=== PATIENT | female | born 1995 | race Caucasian/White ===

== ENCOUNTER 2019-04-08 09:21 | Emergency (ER) | payer OTHER, SELFPAY ==
--- NOTE | 2019-04-08 09:25 | ED.GENADULT ---
HPI - General Adult General Chief complaint: Upper Respiratory Infection Stated complaint: Cough,Fever Time Seen by Provider: 04/08/19 09:42 Source: patient and RN notes reviewed Mode of arrival: ambulatory Limitations: no limitations History of Present Illness HPI narrative: This patient onset of a cough which is been nonproductive on the evening of 04/06/2019. She also developed a fever with a temperature maximum to 100.4. She is a small amount of clear nasal drainage. She has had a slight sore throat not severe. She has not had any nausea, no vomiting, no diarrhea. She has had no hematuria, no dysuria, no pyuria. She has not had any ear pain or drainage from the ears. 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 She has had an influenza vaccine This season. Related Data Home Medications Medication Instructions Recorded Confirmed cetirizine [Zyrtec] 10 mg DAILY 04/08/19 04/08/19 fluticasone propionate [Flonase 1 spray INTRANASAL DAILY 04/08/19 04/08/19 Allergy Relief] Allergies Allergy/AdvReac Type Severity Reaction Status Date / Time No Known Allergies Allergy Verified 04/08/19 09:41 Review of Systems Review of Systems: Narrative: CONSTITUTIONAL: Denies fever, chills, or sweats. Noncontributory except as pertains to the past medical history and history of present illness. EYES: Denies visual changes, redness, or discharge. ENT: Denies rhinorrhea, congestion, sore throat, or otalgia. CARDIOVASCULAR: Denies chest pain, palpitations, or edema. RESPIRATORY: Denies cough or dyspnea. GASTROINTESTINAL: Denies abdominal pain, nausea, vomiting, or diarrhea. GENITOURINARY: Denies dysuria or hematuria. SKIN: Denies rash or itching. MUSCULOSKELETAL: Denies back pain, joint pain, or myalgia. NEUROLOGIC: Denies headache, numbness, or weakness. PSYCHIATRIC: Denies anxiety or depression. [facility] Social History Social History Gender identity (if verbalized by the patient): Female Comments At time of signature, I have reviewed and agree with nursing past medical, surgical, social, and family history.Please see nursing chart for further information. There is no relevant family history pertinent to the presenting complaint. Exam Narrative: Exam Narrative: GENERAL: Well-appearing, well-nourished, and in no acute distress. HEAD: Normocephalic, atraumatic. EYES: PERRLA and EOMI. EARS: TM's clear Bilaterally and the canals are clear. NOSE: Nares are edematous in terms of the nasal mucosa, but no purulent rhinorrhea or postnasal drip is seen. THROAT:Mucous membranes moist.Oropharynx normal without erythema or exudates. NECK: Supple. No adenopathy of the neck, supraclavicular, axillary, or inguinal areas. RESPIRATORY: No respiratory distress. Airway patent. Respirations non-labored. The lungs have rhonchi in upper and in the midlung saravia, but not the bases. There are no wheezes, no rales, no retractions, no use accessory muscle respirations. Patient's not cyanotic and not dyspneic. HEART: Regular rate and rhythm. No murmur heard. Normal peripheral pulses. ABDOMEN: Soft, nontender, nondistended, normal active bowel sounds.No masses. No rebound or guarding, No organomegaly. No CVA pain. No pain McBurney's point. Patient is a negative Tubbs sign and negative Rovsing sign. There are no pulsatile masses no audible bruits. EXTREMITIES: No clubbing/cyanosis/ edema. Normal strength & range of motion. SKIN: Warm, dry.Normal color. No rashes or skin lesions. Patient is well-nourished well-hydrated has moist mucous membranes no tenting of the skin. NEURO: Alert and oriented. CN 2-12 grossly intact. No focal deficits. PSYCH: Normal mood and affect. Medical Decision Making [facility] Narrative Medical decision making narrative: Bronchitis, rule out influenza. Discharge Plan Discharge Clinical Impression: Bronchitis Patient Disposition: Home, Self-Ca
[2019-04-08 09:34] VITALS: BP 126/74; PULSE 76; RESP 16; TEMP 37.4; O2SAT 100
== END 2019-04-08 10:05 | disposition home or self-care (01) ==
LOC: EXPCOLL 09:28
PROVIDERS: Emergency Provider Family Medicine; PCP Family Medicine
DX: J40 Bronchitis, not specified as acute or chronic (principal)
CPT/HCPCS: 87804; 99203; G0463

== ENCOUNTER 2023-03-02 09:56 | Emergency (ER) | payer OTHER, SELFPAY ==
[2023-03-02 10:06] VITALS: BP 113/76; PULSE 82; RESP 18; TEMP 37.2; O2SAT 100
--- NOTE | 2023-03-02 10:07 | ED.URI ---
HPI - URI/Sore Throat General Chief Complaint: Upper Respiratory Infection Stated Complaint: fever,sore throat,headache Time Seen by Provider: 03/02/23 10:07 Source: patient Mode of arrival: ambulatory Limitations: no limitations History of Present Illness HPI Narrative: Paula is a 27-year-old female patient presenting to the clinic today with complaints of fever, sore throat, and headache x6 days. She reports does have nasal congestion with sinus pain. Is currently . MD elicited complaint: cough, sore throat, rhinorrhea, nasal congestion and sinus pain Related Data Allergies Allergy/AdvReac Type Severity Reaction Status Date / Time No Known Allergies Allergy Verified 03/02/23 10:01 Review of Systems Review of Systems: Pertinent positives per HPI. Patient denies any rash, visual changes, dizziness, shortness of breath, chest pain, palpitations, nausea, vomiting, diarrhea, constipation, abdominal pain, or any urinary issues. PMF Past Medical History Medical History Allergies Vaginal delivery Surgical History Surgical History History of ovarian cystectomy Family History Family History Father Bladder cancer Depression Hypertension Mother Asthma Depression Grandparent Alcohol abuse Brain cancer Breast cancer Diabetes mellitus Hypertension Depression Heart disease Social History Social History Smoking status: Never smoker Alcohol intake: current Alcohol use details: rarely Substance use: never Substance use type: does not use Lack of Transportation: No Lack of Food: Never True Current Housing: I Have Housing Concerned About Future Housing: No Difficulty Paying Gas/Electric Bills: No Difficulty Paying for Meds: No Currently Unemployed: No Education: Bachelor's Degree Difficulty w/ Childcare or Family Care: No Living arrangements: with family Occupation/Education: occupation Gender identity (if verbalized by the patient): Female Sexual Orientation (if Verbalized by the Patient): Straight or Heterosexual Agree to blood products: Yes Comments At the time of my signature, I reviewed and agree with the nursing past medical, surgical, social, and family history. There is no relevant family history pertinent to the patient complaint. Exam Narrative: General: Well-developed, well nourished, in no apparent distress Head: Normocephalic, atraumatic Eyes: Pupils equally round and reactive to light bilaterally, EOM intact, sclera and conjunctive clear, no discharge, lids normal Ears: TMs intact and congested, ear canals clear, no drainage, grossly hearing normal. Nose: Nares patent, clear nasal discharge, no inflammation, no sinus tenderness. Mouth: Oral pharynx red without lesions or masses, good dentition, MMM. Postnasal drip Neck: Supple, trachea midline, no enlargement of anterior or posterior cervical nodes, no thyroid masses or goiter palpable. Cardio: Regular rate and rhythm, s1 and s2 normal, no murmur appreciated. Resp: Clear to auscultation bilaterally, no rhonchi, rales, wheezing or rubs Course Course Emergency Course: Portions of this record may have been created with voice recognition software. Level of Care: Express Care Visit Vital Signs Vital signs: Vital signs reviewed MDM - URI/Sore Throat MDM Narrative Medical decision making narrative: At the time of visit patient is resting comfortably on the exam table. Patient appears to be nontoxic. Strep test was performed and positive. Prescription for prednisone and amoxicillin was sent to the pharmacy. Supportive measures were discussed with the patient and they voiced understanding discharge instructions and agrees to treatment enmanuel
== END 2023-03-02 10:40 | disposition home or self-care (01) ==
PROVIDERS: Emergency Provider Nurse Practitioner Family; PCP Nurse Practitioner
DX: J02.0 Streptococcal pharyngitis (principal)
CPT/HCPCS: 87880; 99213; G0463